=== PATIENT | female | born 1950 | race Caucasian/White ===

== ENCOUNTER 2017-03-11 17:30 | Emergency (ER) | payer BC ==
[2017-03-11 18:00] VITALS: BP 146/76
== END 2017-03-11 18:00 | disposition home or self-care (01) ==
LOC: ED 17:30
DX: J06.9 Acute upper respiratory infection, unspecified (principal)

== ENCOUNTER 2017-03-28 14:53 | Emergency (ER) | payer OTHER ==
[~2017-03-28] VITALS: Ht 152.4 cm; Wt 75.4 kg
[2017-03-28 16:20] LABS: CALCIUM 9.4 mg/dL (8.5-10.1); CARBON DIOXIDE 28.5 mmol/L (21-32); CHLORIDE SERUM 105 mmol/L (98-107); CREATININE SERUM 0.9 mg/dL (0.6-1.0); GFR1 > 60 mL/min; GLUCOSE SERUM 107 mg/dL (74-106); POTASSIUM SERUM 4.2 mmol/L (3.5-5.1); SODIUM SERUM 140 mmol/L (136-145)
[2017-03-28 16:25] LABS: ALBUMIN 3.6 g/dL (3.4-5.0); ALKALINE PHOSPHATASE 77 U/L (46-116); ALT/SGPT 34 U/L (14-59); AST/SGOT 24 U/L (15-37); BASOPHIL % 0.1 % (0-2); BILIRUBIN TOTAL 0.48 mg/dL (0.20-1.00); PLATELET COUNT 209 x10^3mcL (130-400); RED CELL DISTRIBUTION WIDTH 14.4 % (11.5-14.5); TOTAL PROTEIN, SERUM 7.4 g/dL (6.4-8.2)
[2017-03-28 17:15] VITALS: BP 117/70
== END 2017-03-28 17:15 | disposition home or self-care (01) ==
LOC: ED 14:53
PROVIDERS: Emergency Medicine
DX: J20.9 Acute bronchitis, unspecified (principal); Z88.0 Allergy status to penicillin; Z88.6 Allergy status to analgesic agent
CPT/HCPCS: 36415; 85378; J7613; J7644; Q0092

== ENCOUNTER 2018-01-22 17:04 | Emergency (ER) | payer OTHER ==
[~2018-01-22] VITALS: Ht 152.4 cm; Wt 78.2 kg
[2018-01-22 17:51] VITALS: Ht 152.4 cm; Wt 78.2 kg
[2018-01-22 20:52] VITALS: BP 142/70
== END 2018-01-22 20:52 | disposition home or self-care (01) ==
LOC: ED 17:04
DX: H81.392 Other peripheral vertigo, left ear (principal); Z88.0 Allergy status to penicillin; Z88.6 Allergy status to analgesic agent
CPT/HCPCS: J8597